=== PATIENT | female | born 1950 | race Caucasian/White ===

== ENCOUNTER 2017-04-17 03:25 | Emergency (ER) | payer SELFPAY ==
[2017-04-17 03:38] VITALS: TEMP 98
[2017-04-17 04:11] LABS: BASO % 0.4 % (0.0-2.0); EOS % 0.1 % (0.0-4.0); HEMOGLOBIN 14.2 g/dL (12.0-16.0); LYMPH # 1.3 K/uL (1.0-4.3); LYMPH % 19.8 % (20.0-40.0); MEAN CELL VOLUME 94.1 fl (81.0-99.0); MEAN CORPUSCULAR HEMOGLOBIN 32.7 pg (27.0-31.0); MEAN CORPUSCULAR HGB CONC 34.7 g/dL (33.0-37.0); MEAN PLATELET VOLUME 8.3 fl (7.2-11.7); MONO # 0.3 K/uL (0.0-0.8); MONO % 4.1 % (0.0-10.0); NEUT # 4.8 K/uL (1.8-7.0); NEUT % 75.6 % (50.0-75.0); NRBC % 0.1 % (0.0-0.0); RBC 4.34 Mil/uL (3.80-5.20); RED CELL DISTRIBUTION WIDTH 13.7 % (11.5-14.5); WHITE BLOOD COUNT 6.4 K/uL (4.8-10.8)
[2017-04-17] MEDS: Sodium Chloride 0.9% 1,000 ML IV SCH ×4 (04:15→09:20)
[2017-04-17 04:25] LABS: CALCIUM 8.6 mg/dL (8.4-10.2); GFR AFRICAN-AMERICAN > 60; GFR NON-AFRICAN AMERICAN > 60
[2017-04-17 04:31] LABS: BLOOD UREA NITROGEN 11 mg/dl (7-17)
--- NOTE | 2017-04-17 05:54 | ED PDOC ---
HPI: Chest Pain Time Seen by Provider: 04/17/17 03:38 Chief Complaint (Nursing): Chest Pain Chief Complaint (Provider): Chest Pain History Per: Patient History/Exam Limitations: no limitations Additional Complaint(s): 66 y/o female with past medical history of low blood pressure and fainting presents to the ED complaining of vomiting since past 3 days. Vomiting started on Wednesday and then got better but on Wednesday it came back and she had about 5 episodes (non bloody, non bilious).She hasn't been able to keep liquids and when vomiting she has mid sternal chest pain. Mid epigastric pain improves after every episode. Denies shortness of breath, abdominal pain or any further medical complaints. Past Medical History Reviewed: Historical Data, Nursing Documentation, Vital Signs Vital Signs: Last Vital Signs Temp 98.0 F 04/17/17 03:34 Pulse 65 04/17/17 03:34 Resp 16 04/17/17 03:34 BP 165/81 H 04/17/17 03:34 Pulse Ox 98 04/17/17 05:58 - Medical History Other PMH: Low blood pressue, fainting - Surgical History Other surgeries: Tubal Litigation (30 years ago) - Family History Family History: States: Unknown Family Hx - Allergies Allergies/Adverse Reactions: Allergies Allergy/AdvReac Type Severity Reaction Status Date / Time No Known Allergies Allergy Verified 04/17/17 03:38 Review of Systems ROS Statement: Except As Marked, All Systems Reviewed And Found Negative (As per HPI,otherwise negative) Cardiovascular: Positive for: Chest Pain Respiratory: Negative for: Shortness of Breath Gastrointestinal: Positive for: Vomiting. Negative for: Abdominal Pain Physical Exam - Reviewed Nursing Documentation Reviewed: Yes Vital Signs Reviewed: Yes - Physical Exam Appears: Positive for: Well, Non-toxic, No Acute Distress Head Exam: Positive for: ATRAUMATIC, NORMAL INSPECTION, NORMOCEPHALIC Skin: Positive for: Normal Color, Warm, Dry Eye Exam: Positive for: EOMI, Normal appearance, PERRL ENT: Positive for: Normal ENT Inspection Neck: Positive for: Normal, Painless ROM, Supple Cardiovascular/Chest: Positive for: Regular Rate, Rhythm. Negative for: Murmur Respiratory: Positive for: Normal Breath Sounds. Negative for: Accessory Muscle Use, Respiratory Distress Gastrointestinal/Abdominal: Positive for: Tenderness (mild tenderness to palpation in the epigastric region) Back: Positive for: Normal Inspection Extremity: Positive for: Normal ROM. Negative for: Deformity Neurologic/Psych: Positive for: Alert, Oriented (x3) - Laboratory Results Result Diagrams: 04/17/17 04:00 04/17/17 04:00 - ECG O2 Sat by Pulse Oximetry: 98 (RA) Pulse Ox Interpretation: Normal Medical Decision Making Medical Decision Making: Time: 03:48 Initial Impression: Chest pain secondary to esophagitis secondary to vomiting Plan: EKG BMP Troponin I CBC w/ differential Partial thromboplastin time Prothrombin time Chest x-ray Bentyl 20mg PO Sodium chloride 1L IV Pepcid 20mg IVP Pantoprazole 40mg IVP Ondansetron 4mg IVP telemetry monitor cont Urinalysis Reevaluation 0700 CXR reveals no acute pathology. Pt. still reports 6/10 pain in same area despite medication. Will order CT angio to f/o dissection. Will give morphine and viscous lido to see if pain improves. Will endorse to day team Dr. Cardoso pending CT and re-eval. Scribe Attestation: Documented by Benjamín Penaloza acting as a scribe for Christ Rasmussen MD. Scribe Attestation: All medical record entries made by the Scribe were at my direction and personally dictated by me. I have reviewed the chart and agree that the record accurately reflects my personal performance of the history, physical exam, medical decision making, and the department course for this patient. I have also personally directed, reviewed, and agree with the discharge instructions and disposition. Disposition - Clinical Impression Clinical Impression: Chest pain - Patient ED Disposition Is Patient to be Admitted: Transfer of Care - Disposition Disposition: Transfer of Care Disposition Time: 07:00 Condition: STABLE Forms: [employer] (Guyanese) Patient Signed Over To: Pepe Cardoso Handoff Comments: pending CT, re-evaluation
[2017-04-17 06:01] LABS: PARTIAL THROMBOPLASTIN TIME 34.5 Seconds (25.6-37.1); PROTHROMBIN TIME 11.5 Seconds (9.8-13.1)
--- NOTE | 2017-04-17 07:16 | ED PDOC ---
- Laboratory Results Result Diagrams: 04/17/17 04:00 04/17/17 04:00 - ECG O2 Sat by Pulse Oximetry: 98 (RA) Pulse Ox Interpretation: Normal Medical Decision Making Medical Decision Making: Patient signed out to provider at 7am from Dr. Rasmussen pending CT chest and abdomen. [id number] PROCEDURE: CT Angiography Chest, Abdomen and Pelvis with and without intravenous contrast HISTORY: Rule out dissection COMPARISON: None. TECHNIQUE: Contiguous axial images of the chest, abdomen and pelvis were obtained in the phase of aortic enhancement. A noncontrast enhanced CT of the chest was also obtained to evaluate for possible intramural thrombus. Coronal and sagittal reformats were generated. IV dose administered: 98 Radiation dose: Total exam DLP = 893.28 mGy-cm. This CT exam was performed using one or more of the following dose reduction techniques: Automated exposure control, adjustment of the mA and/or kV according to patient size, and/or use of iterative reconstruction technique. FINDINGS: CT ANGIOGRAPHY OF THE CHEST WITH & WITHOUT CONTRAST: AORTA (CHEST AND ABDOMEN): The thoracic and abdominal aorta are unremarkable, without aneurysm, dissection or rupture. No intramural thrombus identified in the thoracic aorta on the non-contrast ct of the chest. The celiac axis, superior mesenteric artery, inferior mesenteric artery and the renal arteries are widely patent. The pelvic arteries are unremarkable. LUNGS: Minor biapical pleural thickening and parenchymal scarring. . Minimal bibasilar atelectasis and scarring changes. MEDIASTINUM: Unremarkable. Normal caliber aorta and pulmonary arterial trunk. No aortic dissection. Normal size heart. Small hiatal hernia. LYMPH NODES: Unremarkable. PLEURA: Unremarkable. No pneumothorax. No pleural fluid. BONES: Mild multilevel degenerative spondylosis of the thoracic. OTHER FINDINGS: None. CT ANGIOGRAPHY OF THE ABDOMEN AND PELVIS WITH CONTRAST: LIVER: Unremarkable. No gross lesion or ductal dilatation. GALLBLADDER AND BILE DUCTS: Unremarkable. PANCREAS: Unremarkable. No gross lesion or ductal dilatation. SPLEEN: Unremarkable. ADRENALS: Unremarkable. No mass. KIDNEYS AND URETERS: Unremarkable. No hydronephrosis. No solid mass. VASCULATURE: Unremarkable. No aortic aneurysm. STOMACH AND BOWEL: Unremarkable. No obstruction. No gross mural thickening. APPENDIX: Normal appendix. PERITONEUM: Unremarkable. No free fluid. No free air. LYMPH NODES: Unremarkable. No enlarged lymph nodes. BLADDER: Unremarkable. REPRODUCTIVE: Unremarkable. BONES: Mild multilevel degenerative spondylosis of the lumbar spine with mild levoscoliosis. OTHER FINDINGS: None. IMPRESSION: No evidence of aortic dissection. Minor biapical pleural thickening adjacent parenchymal scarring. Minimal bibasilar atelectasis and scarring Documented by Gege Chamberlain acting as a scribe for Pepe Cardoso MD. All medical record entries made by the Scribe were at my direction and personally dictated by me. I have reviewed the chart and agree that the record accurately reflects my personal performance of the history, physical exam, medical decision making, and the department course for this patient. I have also personally directed, reviewed, and agree with the discharge instructions and disposition. Disposition Counseled Patient/Family Regarding: Studies Performed, Diagnosis, Need For Followup - Clinical Impression Clinical Impression: Chest pain, Vomiting, Abdominal pain - POA Present On Arrival: None - Disposition Referrals: [facility] [Outside] Disposition: Routine/Home Disposition Time: 10:30 Condition: GOOD Additional Instructions: Take your medications as instructed. Return for worsening. Follow up with your PCP in 2-3 days. Prescriptions: Famotidine [Pepcid] 20 mg PO DAILY #14 tab Ondansetron ODT [Zofran ODT] 4 mg PO Q8 PRN #12 odt PRN Reason: Nausea/Vomiting Sucralfate [Carafate] 1 gm PO TID #15 dose traMADol [Ultram] 50 mg PO TID PRN #15 tab PRN Reason: Pain, Severe (8-10) Instructions: Nausea and Vomiting, Adult, Chest Pain
[2017-04-17] MEDS ORDERED: Sodium Chloride 0.9% 100 ML ONE (08:13)
[2017-04-17] MEDS ORDERED: Iodixanol 320 MG/ML 100 ML BOTTLE IV ONE (08:13)
--- NOTE | 2017-04-17 09:28 | CT ---
PROCEDURE: CT Angiography Chest, Abdomen and Pelvis with and without intravenous contrast HISTORY: Rule out dissection COMPARISON: None. TECHNIQUE: Contiguous axial images of the chest, abdomen and pelvis were obtained in the phase of aortic enhancement. A noncontrast enhanced CT of the chest was also obtained to evaluate for possible intramural thrombus. Coronal and sagittal reformats were generated. IV dose administered: 98 Radiation dose: Total exam DLP = 893.28 mGy-cm. This CT exam was performed using one or more of the following dose reduction techniques: Automated exposure control, adjustment of the mA and/or kV according to patient size, and/or use of iterative reconstruction technique. FINDINGS: CT ANGIOGRAPHY OF THE CHEST WITH & WITHOUT CONTRAST: AORTA (CHEST AND ABDOMEN): The thoracic and abdominal aorta are unremarkable, without aneurysm, dissection or rupture. No intramural thrombus identified in the thoracic aorta on the non-contrast ct of the chest. The celiac axis, superior mesenteric artery, inferior mesenteric artery and the renal arteries are widely patent. The pelvic arteries are unremarkable. LUNGS: Minor biapical pleural thickening and parenchymal scarring. . Minimal bibasilar atelectasis and scarring changes. MEDIASTINUM: Unremarkable. Normal caliber aorta and pulmonary arterial trunk. No aortic dissection. Normal size heart. Small hiatal hernia. LYMPH NODES: Unremarkable. PLEURA: Unremarkable. No pneumothorax. No pleural fluid. BONES: Mild multilevel degenerative spondylosis of the thoracic. OTHER FINDINGS: None. CT ANGIOGRAPHY OF THE ABDOMEN AND PELVIS WITH CONTRAST: LIVER: Unremarkable. No gross lesion or ductal dilatation. GALLBLADDER AND BILE DUCTS: Unremarkable. PANCREAS: Unremarkable. No gross lesion or ductal dilatation. SPLEEN: Unremarkable. ADRENALS: Unremarkable. No mass. KIDNEYS AND URETERS: Unremarkable. No hydronephrosis. No solid mass. VASCULATURE: Unremarkable. No aortic aneurysm. STOMACH AND BOWEL: Unremarkable. No obstruction. No gross mural thickening. APPENDIX: Normal appendix. PERITONEUM: Unremarkable. No free fluid. No free air. LYMPH NODES: Unremarkable. No enlarged lymph nodes. BLADDER: Unremarkable. REPRODUCTIVE: Unremarkable. BONES: Mild multilevel degenerative spondylosis of the lumbar spine with mild levoscoliosis. OTHER FINDINGS: None. IMPRESSION: No evidence of aortic dissection. Minor biapical pleural thickening adjacent parenchymal scarring. Minimal bibasilar atelectasis and scarring
[2017-04-17 10:45] VITALS: BP 137/61; PULSE 64; RESP 16; O2SAT 97
--- NOTE | 2017-04-17 11:43 | RAD ---
HISTORY: CP COMPARISON: No prior. FINDINGS: LUNGS: Biapical pleural thickening with apparent linear fibrosis/scarring both lung apices left greater than right. There may also be some mild linear scarring changes left lung base. PLEURA: No significant pleural effusion identified, no pneumothorax apparent. CARDIOVASCULAR: Normal. OSSEOUS STRUCTURES: Mild dextroscoliosis of the thoracic spine VISUALIZED UPPER ABDOMEN: Normal. OTHER FINDINGS: None. IMPRESSION: Mild biapical pleural thickening and apical scarring -fibrosis. There may also appears to be some minor linear scarring left lung base
--- NOTE | 2017-04-19 12:21 | CARD ---
APPROVED REPORT EKG Measurement Heart [id number] 118P22 [id number] <Conclusion> Marked sinus bradycardia Septal infarct, age undetermined Abnormal ECG
--- NOTE | 2017-04-19 12:21 | CARD ---
APPROVED REPORT EKG Measurement Heart [id number] <Conclusion> Sinus bradycardia Nonspecific ST abnormality Abnormal ECG
== END 2017-04-17 10:45 | disposition home or self-care (01) ==
LOC: H.ER 03:25
DX: R07.9 Chest pain, unspecified (principal); R11.10 Vomiting, unspecified; R10.13 Epigastric pain
CPT/HCPCS: 71045; 71270; 74175; 80048; 84484; 85025; 85610; 85730; 93005; 96374; 96375; 96376; 99284; C9113; J2270; J2405; J7040; Q9967